=== PATIENT | male | born 1955 | race Caucasian/White ===

== ENCOUNTER 2021-11-20 09:04 | Outpatient (CLI) | payer BC | END 2021-11-20 09:05 | disposition home or self-care (01) | LOC: CSHCP 09:04 | PROVIDERS: ATTEND Internal Medicine Critical Care Medicine | DX: D86.9 Sarcoidosis, unspecified (principal); R94.2 Abnormal results of pulmonary function studies | CPT/HCPCS: 94060; 94726; 94729; 94760 ==

== ENCOUNTER 2023-01-11 07:18 | Outpatient (CLI) | payer BC | END 2023-01-11 07:19 | disposition home or self-care (01) | LOC: CSHCP 07:18 | PROVIDERS: ATTEND Internal Medicine Critical Care Medicine | DX: D86.9 Sarcoidosis, unspecified (principal); J44.9 Chronic obstructive pulmonary disease, unspecified | CPT/HCPCS: 94010; 94726; 94729; 94760 ==

== ENCOUNTER 2023-06-01 07:57 | Outpatient (CLI) | payer BC | END 2023-06-01 07:58 | disposition home or self-care (01) | LOC: CSHCP 07:57 | PROVIDERS: ATTEND Internal Medicine Critical Care Medicine | DX: D86.9 Sarcoidosis, unspecified (principal) | CPT/HCPCS: 94060; 94664; 94726; 94729; 94760 ==

== ENCOUNTER 2024-07-06 07:49 | Outpatient (CLI) | payer MEDICARE | END 2024-07-06 07:50 | disposition home or self-care (01) | LOC: CSHCP 07:49 | PROVIDERS: ATTEND Internal Medicine Critical Care Medicine | DX: J45.30 Mild persistent asthma, uncomplicated (principal); J44.9 Chronic obstructive pulmonary disease, unspecified; J98.4 Other disorders of lung | CPT/HCPCS: 94060; 94726; 94729; 94760 ==